=== PATIENT | male | born 1980 | race Caucasian/White ===

== ENCOUNTER → 2018-07-24 | Outpatient (CLI) | payer OTHER | END | disposition home or self-care (01) | LOC: CFH 14:14 | PROVIDERS: ATTEND Nurse Practitioner Primary Care | DX: J34.1 Cyst and mucocele of nose and nasal sinus (principal) | CPT/HCPCS: 70551 ==

== ENCOUNTER 2020-02-04 07:32 | Day surgery (SDC) | payer OTHER ==
[~2020-02-04] VITALS: Ht 177.8 cm; Wt 138.0 kg
[~2020-02-04 07:32] MED LIST: ATOR10TA9 PO; BACITRACIN 50,000 UNIT ONE; BUPIVACAINE/PF-EPI 0.5% 1:200K ONE; BUPR150T73 PO; CHOL10003 PO; FENO160T PO; PROP20TA PO; TRAZ50TA66 PO; VANCOMYCIN 1,000 MG ONE; VENL150T PO
[2020-02-04 07:58] VITALS: BP 148/77
[2020-02-04] MEDS ORDERED: LACTATED RINGERS 1,000 ML IV SCH (08:04)
[2020-02-04] MEDS ORDERED: CHLORHEXIDINE 15 ML UDC MM STA (08:04)
[2020-02-04] MEDS ORDERED: CHLORHEXIDINE 15 ML UDC ONE (08:08)
[2020-02-04] MEDS ORDERED: FENTANYL PF 250 MCG/5ML ONE (08:17)
[2020-02-04] MEDS ORDERED: LIDOCAINE GEL 2%, 5ML ONE (08:23)
[2020-02-04] MEDS ORDERED: ONDANSETRON 2MG/ML, 2ML ONE (09:46)
[2020-02-04] MEDS ORDERED: ROCURONIUM 10MG/ML,5ML ONE (09:46)
[2020-02-04] MEDS ORDERED: DEXAMETHASONE 4 MG/ML, 1ML ONE (09:46)
[2020-02-04] MEDS ORDERED: SUCCINYLCHOLINE 20 MG/ML, 10ML ONE (09:46)
[2020-02-04] MEDS ORDERED: PROPOFOL 10 MG/ML, 20ML ONE (09:46)
[2020-02-04] MEDS ORDERED: NEOSTIGMINE 1 MG/ML, 10ML ONE (09:46)
[2020-02-04] MEDS ORDERED: CEFAZOLIN 1,000 MG ONE ×2 (09:46)
[2020-02-04] MEDS ORDERED: GLYCOPYRROLATE 0.2MG/1ML, 5ML ONE (09:46)
[2020-02-04] MEDS ORDERED: LIDOCAINE-MPF 2% ,5ML ONE ×2 (09:53)
[2020-02-04] MEDS ORDERED: MIDAZOLAM 1 MG/ML, 2ML IV PRN (10:00)
[2020-02-04] MEDS ORDERED: MEPERIDINE/PF 25MG/0.5ML IVPush PRN (10:00)
[2020-02-04] MEDS ORDERED: LABETALOL 5MG/ML, 20ML IV PRN (10:00)
[2020-02-04] MEDS ORDERED: hydrALAzine 20 MG/ML, 1ML IV PRN (10:00)
[2020-02-04] MEDS ORDERED: ALBUTEROL/IPRATROPIUM 2.5MG/0.5MG, 3 ML NPPB PRN (10:00)
[2020-02-04] MEDS ORDERED: METHOCARBAMOL 1,000 MG in DEXTROSE 5% 100 ML IV PRN (10:00)
[2020-02-04] MEDS ORDERED: ACETAMINOPHEN 325 MG TABLET PO PRN (10:00)
[2020-02-04] MEDS ORDERED: PROMETHAZINE 25 MG/ML, 1ML IVPush PRN (10:00)
[2020-02-04] MEDS ORDERED: HYDROmorphone 1 MG/ML, 1ML INJ IVPush PRN (10:00)
[2020-02-04] MEDS ORDERED: OXYcodone 5 MG/5 ML ORAL.SOL UDC ONE ×2 (10:29→10:56)
[2020-02-04] MEDS ORDERED: FENTANYL PF 100 MCG/2ML ONE ×2 (10:29→10:56)
[2020-02-04] MEDS: FENTANYL PF 100 MCG/2ML IV PRN ×5 (10:30→11:16)
[2020-02-04] MEDS: OXYcodone 5 MG/5 ML ORAL.SOL UDC PO PRN ×2 (10:41→10:57)
== END 2020-02-04 13:30 | disposition home or self-care (01) ==
LOC: OUT 07:32
PROVIDERS: ATTEND Neurological Surgery
DX: M48.061 Spinal stenosis, lumbar region without neurogenic claudication (principal); M51.16 Intervertebral disc disorders with radiculopathy, lumbar region; M54.5 Low back pain; G89.29 Other chronic pain; F32.9 Major depressive disorder, single episode, unspecified; I10 Essential (primary) hypertension; G47.33 Obstructive sleep apnea (adult) (pediatric); E78.5 Hyperlipidemia, unspecified; Z98.890 Other specified postprocedural states; E66.01 Morbid (severe) obesity due to excess calories; Z68.41 Body mass index [BMI] 40.0-44.9, adult; Z79.899 Other long term (current) drug therapy; Z87.891 Personal history of nicotine dependence
CPT/HCPCS: 63056; 72100; J0330; J0690; J1100; J2405; J2704; J2710; J2800; J3010; J3370; J7120

== ENCOUNTER 2021-06-11 07:39 | Inpatient (IN) | payer OTHER ==
[~2021-06-11] VITALS: Ht 177.8 cm; Wt 143.1 kg
[2021-06-16 19:44] VITALS: BP 146/82
== END 2021-06-16 21:30 | disposition home or self-care (01) | DRG 177 ==
LOC: ED 11:17 → EDIP 11:24 → 3N 06-12 01:20
PROVIDERS: ADMIT Family Medicine; ATTEND Hospitalist
PROC: XW033E5 Introduction of Remdesivir Anti-infective into Peripheral Vein, Percutaneous Approach, New Technology Group 5 (ICD-10-PCS; principal; 2021-06-11)
PROC: 5A09357 Assistance with Respiratory Ventilation, Less than 24 Consecutive Hours, Continuous Positive Airway Pressure (ICD-10-PCS; 2021-06-12)
PROC: 5A09357 Assistance with Respiratory Ventilation, Less than 24 Consecutive Hours, Continuous Positive Airway Pressure (ICD-10-PCS; 2021-06-13)
PROC: 5A09357 Assistance with Respiratory Ventilation, Less than 24 Consecutive Hours, Continuous Positive Airway Pressure (ICD-10-PCS; 2021-06-14)
PROC: 5A09357 Assistance with Respiratory Ventilation, Less than 24 Consecutive Hours, Continuous Positive Airway Pressure (ICD-10-PCS; 2021-06-15)
PROC: 5A09357 Assistance with Respiratory Ventilation, Less than 24 Consecutive Hours, Continuous Positive Airway Pressure (ICD-10-PCS; 2021-06-16)
DX: U07.1 COVID-19 (principal); J12.82 Pneumonia due to coronavirus disease 2019; J96.01 Acute respiratory failure with hypoxia; I10 Essential (primary) hypertension; G47.33 Obstructive sleep apnea (adult) (pediatric)